=== PATIENT | male | born 2000 | race Caucasian/White ===

== ENCOUNTER 2025-06-06 10:06 | Emergency (ER) | payer OTHER ==
[~2025-06-06] VITALS: Ht 177.8 cm; Wt 101.6 kg
[2025-06-06 10:30] VITALS: BP 121/65; TEMP 98; O2SAT 97
[2025-06-06] MEDS: IBUPROFEN 400 MG TABLET PO ONE (11:37)
== END 2025-06-06 11:38 | disposition home or self-care (01) ==
LOC: ER 10:33
DX: B34.9 Viral infection, unspecified (principal); F41.9 Anxiety disorder, unspecified; Z20.822 Contact with and (suspected) exposure to COVID-19